=== PATIENT | male | born 1965 | race Caucasian/White ===

== ENCOUNTER 2019-07-05 06:10 | Day surgery (SDC) | payer OTHER, SELFPAY ==
[2019-07-04 12:55] VITALS: BMI 30.4
[2019-07-05 06:27] VITALS: BP 140/88; PULSE 107; RESP 18; TEMP 36.4; O2SAT 97
[2019-07-05] MEDS: sodium chloride 0.9% 1,000 ML 30 ML (06:43)
--- NOTE | 2019-07-05 07:26 | W.PM.OPSUD ---
Surgery/Procedure H&P Update DATE OF PROCEDURE: July 05, 2019 DATE H&P PERFORMED: 07/01/19 H&P UPDATE INFORMATION: I have reviewed H&P completed within last 30 days, I have examined patient prior to procedure, No changes to prior documentation and H&P to be scanned into chart PREOP DIAGNOSIS: Screening colonoscopy PRIMARY INDICATION FOR PROCEDURE: Screening colonoscopy PLANNED PROCEDURE: Operation Date: 07/05/19 07:30 Proposed Procedures p Colonoscopy(Not Applicable) - Masoud Lewis MD Related Problem List Diagnoses (1) Screening for colon cancer:
--- NOTE | 2019-07-05 07:29 | ANES.PREANE2 ---
Pre-Anesthetic Assessment Pre-Anesthetic Assessment: Height/Weight: Height 1.77 m Weight 94.801 kg Temp Pulse Resp BP Pulse Ox 97.5 F L 107 H 18 140/88 97 07/05/19 06:27 07/05/19 06:27 07/05/19 06:27 07/05/19 06:27 07/05/19 06:27 Proposed Procedure: Operation Date: 07/05/19 07:30 Proposed Procedures p Colonoscopy(Not Applicable) - Masoud Lewis MD Was Beta Shailesh taken within 24 hours: N/A Last intake: Intake Last Liquid Date 07/04/19 Last Liquid Time 21:00 Last Solid Date 07/03/19 Social: Social History: No alcohol and No tobacco Exam: Pre-Anes Outpt Exam: alert, oriented x 3, clear to auscultation bilaterally and regular rate & rhythm Airway: Submandibular: WNL Cervical ROM: WNL MP: 2 Dentition: Full History/ROS: No significant history except as noted and No significant complaints Pulmonary: Pulmonary: None reported CV/HEM: CV/HEM: HTN : : None reported Hepatic: Hepatic: None reported GI: GI: None reported Metabolic: Metabolic: None reported Musc/skel: Musc/skel: None reported Neuropsych: Neuropsych: None reported Anesthetic Plan: ASA status: 2 Anesthesia: Anesthesia Evaluation and MAC Risk of > 500 ml blood loss (7ml/kg in children): No PFSH Anesthesia PFSH: Family History (Updated 07/04/19 @ 12:48 by Sarmad Linn LPN) Brother No problems noted. Family/Other Family hx of colon cancer Data Anesthesia Cardiac Studies: No Data to Display
[2019-07-05 07:46] VITALS: BP 83/64; PULSE 89; RESP 16; TEMP 36.7; O2SAT 98
[2019-07-05 08:02] VITALS: BP 101/73; PULSE 97; RESP 18; O2SAT 95
== END 2019-07-05 08:16 | disposition home or self-care (01) ==
PROVIDERS: PCP Family Medicine; Visit Provider Family Medicine
PROC: 0DJD8ZZ Inspection of Lower Intestinal Tract, Via Natural or Artificial Opening Endoscopic (ICD-10-PCS; CPT 45378; principal; 2019-07-05 07:30)
DX: Z12.11 Encounter for screening for malignant neoplasm of colon (principal); Z83.3 Family history of diabetes mellitus; I10 Essential (primary) hypertension
CPT/HCPCS: 12345; 45378; J2704; J7030

== ENCOUNTER 2019-10-24 11:03 | Emergency (ER) | payer SELFPAY ==
[2019-10-24 11:05] VITALS: BP 156/102; PULSE 117; RESP 18; TEMP 37; O2SAT 97; BMI 28.7
--- NOTE | 2019-10-24 11:10 | XRR_ITS ---
PROCEDURE INFORMATION: Exam: XR Chest, 1 View Exam date and time: 10/24/2019 11:11 AM Age: 53 years old Clinical indication: Pain; Cough and shortness of breath; Other: Chest tightness; Additional info: froilan JACOBS TECHNIQUE: Imaging protocol: XR of the chest Views: 1 view. COMPARISON: No relevant prior studies available. FINDINGS: Lungs: Unremarkable. No consolidation. Pleural space: Unremarkable. No pleural effusion. No pneumothorax. Heart/Mediastinum: Unremarkable. No cardiomegaly. Bones/joints: Unremarkable. XR/XR chest 1V portable [id number] IMPRESSION: No acute findings.
--- NOTE | 2019-10-24 11:10 | W.ED.SOB ---
HPI - SOB/Dyspnea General: Chief Complaint: Shortness of Breath/Dyspnea Stated Complaint: CHEST TIGHTNESS, SOB Time Seen by Provider: 10/24/19 11:10 Source: patient Mode of arrival: ambulatory Limitations: no limitations History of Present Illness: HPI Narrative: Patient comes in today with a persistent cough that has worsened over the last 2 to 3 days. Patient reports being placed on lisinopril and is always had a little bit of a cough but seems worse the last 2 days. Patient also reports some mild shortness of breath with exertion over the last 2 days. Patient appears anxious. Patient reports that he is concerned that he may have developed COVID although he has no known exposure, and reports no fever. MD elicited complaint: shortness of breath (mild) and cough Review of Systems General: Reports: 10 or more systems reviewed and unremarkable except in HPI and below Resp: Reports: dyspnea and non-productive cough [facility] ED PFSH: Family History (Updated 07/04/19 @ 12:48 by Sarmad Linn LPN) Brother No problems noted. Family/Other Family hx of colon cancer Social History Smoking and tobacco status: never smoked Physical Exam Const: COMMON NORMALS: no acute distress and patient oriented x3 GENERAL APPEARANCE: cooperative HENMT: COMMON NORMALS: normocephalic and Normal external nose present HEAD & SCALP: normal to inspection and normocephalic NOSE: Normal external nose present MOUTH: Normal oral and palatal mucosa present THROAT: posterior oropharynx normal Eye: GENERAL EYE: appearance normal, both eyes and all related structures Neck/C-Spine: COMMON NORMALS: full ROM Lymph: LYMPHATIC: no lymphadenopathy noted Chest: COMMONS NORMALS: normal inspection of the chest Resp: COMMON NORMALS: normal respiratory effort EFFORT & INSPECTION: Yes able to speak in complete sentences Cardio: COMMON NORMALS: regular rate and regular rhythm RATE: regular rate RHYTHM: regular rhythm GI: COMMON NORMALS: non-tender Back/Pelvis: COMMON NORMALS: thoracic and lumbar spine normal to inspection Extremity: COMMON NORMALS: normal to inspection Neuro: COMMON NORMALS: patient oriented x3 and moves all extremities Psych: COMMON NORMALS: mental status grossly normal and cooperative Skin: COMMON NORMALS: no rashes or lesions noted GENERAL SKIN EXAM: no rashes or lesions noted Course Vital Signs: Vital signs: Vital Signs Temperature 98.6 F 10/24/19 11:05 Pulse Rate 117 H 10/24/19 11:05 Respiratory Rate 18 10/24/19 11:05 Blood Pressure 156/102 10/24/19 11:05 Pulse Oximetry 97 10/24/19 11:05 MDM - SOB/Dyspnea MDM Narrative: Medical decision making narrative: Patient comes in today with worsening cough and some increased shortness of breath over the last 2 to 4 days. Patient appears well. Patient appears in no acute distress. Lungs are clear to auscultation. Heart rate is tachycardic with an occasional ectopic beat. Abdomen soft nontender. No edema is noted in the extremities. Differential diagnosis includes but not limited to CHF, pneumonia, drug-related cough, PE, ACS, lower respiratory infection, anxiety. Chest x-ray was normal. Troponin was negative. CBC and CMP were unremarkable. BNP was normal. D-dimer was negative. Patient was concerned for COVID we went ahead and performed COVID testing and sent to [facility] labs. Patient will practice social distancing and self quarantine for next 3 days until test results are in. Patient agreed to plan of care and need for follow-up. Lab Data: Labs: Lab Results 10/24/19 10/24/19 10/24/19 Range/Units 11:40 11:40 11:40 WBC 4.3 (4.0-10.0) 10^3/ uL RBC 5.50 H (4.1-5.3) 10^6/u L Hgb 14.6 (11.7-16.6) g/dL Hct 46.6 (42.0-52.0) % MCV 84.7 (80-94) fL MCH 26.5 L (28.0-34.0) pg MCHC 31.3 (30.0-36.0) g/dL RDW 13.8 (12.1-15.1) % Plt Count 248 (130-400) 10^3/c mm MPV 9.4 (7.4-10.4) fL Neut % (Auto) 72.8 % Lymph % (Auto) 21.2 % [place] % (Auto) 3.7 % Eos % (Auto) 1.4 % Baso % (Auto) 0.7 % Neut # (Auto) 3.2 (1.8-7.7) 10^3/u L Lymph # (Auto) 0.9 (0.8-4.8) 10^3/u L [place] # (Auto) 0.2 (0.2-0.9) 10^3/u L Eos # (Auto) 0.1 (0.0-0.8) 10^3/u L Baso # (Auto) 0.0 (0.0-0.1) 10^3/u L Nucleated RBC % (a uto) 0 % Nucleated RBCs # 0.0 /100WBC D-Dimer (0-0.59) ug/mIFE U Sodium 140 (136-145) mmol/L Potassium 4.2 (3.5-5.1) mmol/L Chloride 102 (98-107) mmol/L Carbon Dioxide 27 (22-29) mmol/L Anion Gap 15.2 (5-19) BUN 20 (6-20) mg/dL Creatinine 0.7 (0.7-1.2) mg/dL GFR Calculation 117.1 (90-130) mL/min Glucose 124 H (65-115) mg/dL Calculated Osmolal ity 288 (285-295) mOsm/k g Calcium 9.3 (8.5-10.5) mg/dL Total Bilirubin 0.5 (0.15-1.2) mg/dL AST 19 (0-40) U/L ALT 32 (0-41) U/L Alkaline Phosphata se 108 (40-130) IU/L Troponin T Baselin e 10 (0-15) ng/L C-Reactive Protein 4.4 (0.0-4.9) mg/L NT-Pro-B Natriuret Pep 12 (0-125) pg/mL Total Protein 7.0 (6.6-8.7) g/dL Albumin 4.3 (3.5-5.2) g/dL Globulin 2.7 (1.3-4.6) g/dL //20 Range/Units 11:40 WBC (4.0-10.0) 10^3/ uL RBC (4.1-5.3) 10^6/u L Hgb (11.7-16.6) g/dL Hct (42.0-52.0) % MCV (80-94) fL MCH (28.0-34.0) pg MCHC (30.0-36.0) g/dL RDW (12.1-15.1) % Plt Count (130-400) 10^3/c mm MPV (7.4-10.4) fL Neut % (Auto) % Lymph % (Auto) % [place] % (Auto) % Eos % (Auto) % Baso % (Auto) % Neut # (Auto) (1.8-7.7) 10^3/u L Lymph # (Auto) (0.8-4.8) 10^3/u L [place] # (Auto) (0.2-0.9) 10^3/u L Eos # (Auto) (0.0-0.8) 10^3/u L Baso # (Auto) (0.0-0.1) 10^3/u L Nucleated RBC % (a uto) % Nucleated RBCs # /100WBC D-Dimer 0.20 (0-0.59) ug/mIFE U Sodium (136-145) mmol/L Potassium (3.5-5.1) mmol/L Chloride (98-107) mmol/L Carbon Dioxide (22-29) mmol/L Anion Gap (5-19) BUN (6-20) mg/dL Creatinine (0.7-1.2) mg/dL GFR Calculation (90-130) mL/min Glucose (65-115) mg/dL Calculated Osmolal ity (285-295) mOsm/k g Calcium (8.5-10.5) mg/dL Total Bilirubin (0.15-1.2) mg/dL AST (0-40) U/L ALT (0-41) U/L Alkaline Phosphata se (40-130) IU/L Troponin T Baselin e (0-15) ng/L C-Reactive Protein (0.0-4.9) mg/L NT-Pro-B Natriuret Pep (0-125) pg/mL Total Protein (6.6-8.7) g/dL Albumin (3.5-5.2) g/dL Globulin (1.3-4.6) g/dL EKG Data^: EKG 1: Attestation: I personally reviewed and interpreted this EKG as follows: (1118, mild sinus tachycardia at 112 bpm regular with polymorphic PVCs. No ST elevation.) Discharge Plan Discharge Patient Disposition: Home, Self-Care Clinical Impression: Cough Dyspnea Qualifiers: Dyspnea type: unspecified Qualified Code(s): R06.00 - Dyspnea, unspecified Condition: Stable Prescriptions: No Action lisinopril 10 mg Tablet 10 mg PO DAILY RF: 0 Discharge Orders: Discharge Order (Routine); Ordered 10/24/19 Ordered By: Darian Lockhart Referrals: Balaji Schmitt MD [Primary Care Provider] - Discharge Diet: Usual diet Discharge Activity: Increase activity as tolerated Activity Restrictions/Additional Instructions: Home and rest. Self quarantine for the next 3 days or until test results. Use mask about in public, practice social distancing. Return to the ER for worsening symptoms or high fever. Continue medications as directed. Follow-up with primary care in 1 week. Coding Level of Care Code ED Inspector Bicycle for Guerita Fwd Exam Comprehensive
--- NOTE | 2019-10-24 11:11 | ECG_ITS ---
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 Measurements Intervals [place] Rate: 112 P: 46 MT: 136 QRS: 0 QRSD: 85 T: 61 QT: 332 QTc: 455 Interpretive Statements SINUS TACHYCARDIA WITH FREQUENT VENTRICULAR PREMATURE COMPLEXES MINIMAL VOLTAGE CRITERIA FOR LVH, CONSIDER NORMAL VARIANT [MEETS CRITERIA IN ONE OF: R(aVL), S(V1), R(V5), R(V5/V6)+S(V1)] NONSPECIFIC ST & T-WAVE ABNORMALITY ABNORMAL RHYTHM ECG No previous ECG available for comparison Electronically Signed On 10-24-2019 21:13:48 CDT by Andreia Francis M.D. [id number]
[2019-10-24 12:01] LABS: Basophils % 0.7 %; Eosinophils # 0.1 10^3/uL (0.0-0.8); Eosinophils % 1.4 %; Hematocrit 46.6 % (42.0-52.0); Hemoglobin 14.6 g/dL (11.7-16.6); Lymphocytes # 0.9 10^3/uL (0.8-4.8); Lymphocytes % 21.2 %; Mean Corpuscular HGB Conc 31.3 g/dL (30.0-36.0); Mean Corpuscular Hemoglobin 26.5 pg (28.0-34.0); Mean Corpuscular Volume 84.7 fL (80-94); Mean Platelet Volume 9.4 fL (7.4-10.4); Monocytes # 0.2 10^3/uL (0.2-0.9); Monocytes % 3.7 %; Neutrophils # 3.2 10^3/uL (1.8-7.7); Neutrophils % 72.8 %; Nucleated Red Blood Cells % 0 %; Platelet Count 248 10^3/cmm (130-400); Red Cell Distribution Width 13.8 % (12.1-15.1); White Blood Count 4.3 10^3/uL (4.0-10.0)
[2019-10-24 12:24] LABS: Troponin(5th) Baseline 10 ng/L (0-15)
[2019-10-24 12:34] LABS: Alanine Aminotransferase 32 U/L (0-41); Albumin Level 4.3 g/dL (3.5-5.2); Alkaline Phosphatase 108 IU/L (40-130); Anion Gap 15.2 (5-19); Aspartate Amino Transferase 19 U/L (0-40); Blood Urea Nitrogen 20 mg/dL (6-20); C Reactive Protein 4.4 mg/L (0.0-4.9); Calcium 9.3 mg/dL (8.5-10.5); Carbon Dioxide 27 mmol/L (22-29); Chloride 102 mmol/L (98-107); Globulin 2.7 g/dL (1.3-4.6); Glomerular Filtration Rate 117.1 mL/min (90-130); Glucose 124 mg/dL (65-115); NT Pro B Type Natriuretic Pept 12 pg/mL (0-125); Osmolality Calculated 288 mOsm/kg (285-295); Potassium 4.2 mmol/L (3.5-5.1); Sodium 140 mmol/L (136-145); Total Bilirubin 0.5 mg/dL (0.15-1.2)
[2019-10-24 12:55] VITALS: BP 129/78; PULSE 87; RESP 20; O2SAT 96
[2019-10-30 08:20] LABS: Quest SARS-CoV-2 RNA NOT DETECTED (NOT DETECTED)
== END 2019-10-24 13:01 | disposition home or self-care (01) ==
PROVIDERS: Emergency Provider Nurse Practitioner Family; PCP Family Medicine
DX: R05 Cough (principal); R06.00 Dyspnea, unspecified
CPT/HCPCS: 12345; 71045; 80053; 83880; 84484; 85025; 85378; 86140; 93005; 99282; 99283

== ENCOUNTER 2021-01-31 05:05 | Emergency (ER) | payer SELFPAY ==
[2021-01-31 05:16] VITALS: BP 153/113; PULSE 92; RESP 18; TEMP 36.7; O2SAT 97; BMI 29.4
--- NOTE | 2021-01-31 05:37 | USR_ITS ---
PROCEDURE INFORMATION: Exam: US Duplex Right Lower Extremity Veins, Limited Exam date and time: 01/31/2021 5:37 AM Age: 55 years old Clinical indication: Other: Paresthesia; Additional info: R le paresthesia TECHNIQUE: Imaging protocol: Real-time Duplex ultrasound of the Right Lower Extremity with 2-D wayne scale, color Doppler flow and spectral waveform analysis with image documentation. Limited exam was focused on the right lower extremity veins. COMPARISON: No relevant prior studies available. FINDINGS: Evaluated veins include the right common femoral, proximal profunda femoral, proximal/mid/distal superficial femoral, popliteal, posterior tibial, peroneal, and proximal greater saphenous veins. No visible clot in the included veins. The included veins appear normally compressible. Duplex Doppler evaluation demonstrates flow in the evaluated veins. US/[place] [id number] IMPRESSION: No evidence of acute right lower extremity DVT.
--- NOTE | 2021-01-31 07:00 | ED_ITS ---
HPI - Extremity Problem General: Chief complaint: Extremity Injury, Lower Stated complaint: R leg Pain Time Seen by Provider: 01/31/21 05:17 History of Present Illness: HPI Narrative: 55-year-old male presents with an odd sensation of a fluid rushing sensation in his right lateral distal thigh, past his knee and into his leg. He has numbness to his toes. He denies any swelling. He denies significant pain. He does note some back pain that has been chronic. No redness or fever. He asked his daughter, who is a nurse, and she was worried that it could be a blood clot . MD Complaint: extremity pain Onset (ago): hour(s) Pain Consistency: constant Location: right and lower extremity Quality: other Radiation: distal Relieving factors: nothing Exacerbating factors: nothing Associated symptoms: Reports no associated symptoms; Deny arthralgias, chest pain, fever(s), rash or short of breath Review of Systems Const: Denies: fever(s) Card: Denies: chest pain Skin/Breast: Denies: rash PFS ED PFSH: Family History (Updated 07/04/19 @ 12:48 by Sarmad Linn LPN) Brother No problems noted. Family/Other Family hx of colon cancer Social History Smoking and tobacco status: never smoked Physical Exam Const: COMMON NORMALS: no acute distress, patient oriented x3 and alert HENMT: COMMON NORMALS: normocephalic HEAD & SCALP: normocephalic Eye: COMMON NORMALS: Equal, round and reactive pupils present and EOMs intact bilaterally PUPIL: Yes Equal, round and reactive pupils present Chest: COMMONS NORMALS: normal inspection of the chest Resp: COMMON NORMALS: normal respiratory effort, No use of accessory muscles and clear to auscultation bilaterally AUSCULTATION: clear to auscultation bilaterally Cardio: COMMON NORMALS: regular rate and regular rhythm RATE: regular rate RHYTHM: regular rhythm Extremity: OTHER: Examination of the right lower extremity reveals no reproducible tenderness or pain. No pain with calf stretch. No pain with deep flexion of the knee. Symptoms do not worsen with manipulation. Neuro: COMMON NORMALS: patient oriented x3 SENSORIUM/ORIENTATION: Yes alert Course Vital Signs: Vital signs: Vital Signs Temperature 98.1 F 01/31/21 05:16 Pulse Rate 92 01/31/21 05:16 Respiratory Rate 18 01/31/21 05:16 Blood Pressure 153/113 01/31/21 05:16 Pulse Oximetry 97 01/31/21 05:16 MDM - Extremity (Nontraumatic) MDM Narrative: Medical decision making narrative: USound for venous duplex of the right lower extremity is negative. The sensation he gives sounds like enteritis. He will be placed on a small burst of steroid and asked to follow-up with his primary care physician Discharge Plan Discharge Patient Disposition: Home Clinical Impression: Paresthesia of right leg Condition: Stable Prescriptions: New Medrol (Yakov) 4 mg tablets,dose pack See Rx Instructions .ROUTE .COMPLEX Qty: 21 RF: 0 No Action lisinopril 10 mg Tablet 10 mg PO DAILY RF: 0 Discharge Orders: Discharge ED (Routine); Ordered 01/31/21 Ordered By: Manny Rosales Patient Instructions: Paresthesia (ED) Activity Restrictions/Additional Instructions: Return for fever greater than 100, worsening paresthesias, development of pain, swelling, redness, any other concerning symptoms. Medication as directed. Coding Level of Care Code ED Emergency Service Restorer for Guerita Fwd Exam Detailed
[2021-01-31] MEDS: predniSONE 20 mg Tablet 40 MG PO (07:17)
[2021-01-31 07:20] VITALS: BP 127/84; PULSE 91; RESP 18; O2SAT 97
== END 2021-01-31 07:20 | disposition home or self-care (01) ==
PROVIDERS: Emergency Provider Emergency Medicine
DX: R20.2 Paresthesia of skin (principal)
CPT/HCPCS: 93971; 99282; J7512

== ENCOUNTER 2021-10-20 12:25 | Observation (INO) | payer MEDICAID, SELFPAY ==
--- NOTE | 2021-10-20 12:36 | ECG_ITS ---
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 Measurements Intervals [place] Rate: 86 P: 66 [place]: 153 QRS: 20 QRSD: 89 T: 53 QT: 367 QTc: 439 Interpretive Statements SINUS RHYTHM POSSIBLE LEFT ATRIAL ENLARGEMENT [-0.1mV P-WAVE IN V1/V2] POSSIBLE RIGHT VENTRICULAR CONDUCTION DELAY [RSR (QR) IN V1/V2] Compared to ECG 10/24/2019 11:18:57 Sinus tachycardia no longer present Ventricular premature complex(es) no longer present T-wave abnormality no longer present Electronically Signed On 10-20-2021 22:26:50 CDT by Lea Marrero M.D. [id number]
--- NOTE | 2021-10-20 12:36 | XR_ITS ---
WS: [email or web address] Exam: XR chest 1V portable [id number] Date/Time of Exam: 10/20/2021 12:51 PM Reason For Exam: dyspnea Comparison 10/24/2019. The lungs are clear. Normal cardiomediastinal silhouette. No pleural effusions. Bony elements are int act. Bilateral apical pleural thickening. XR/XR chest 1V portable [id number] IMPRESSION: 1. No acute cardiopulmonary finding. No change.
[2021-10-20 12:45] VITALS: BP 114/79; PULSE 87; RESP 12; TEMP 36.8; O2SAT 98; BMI 26.1
[2021-10-20 13:35] LABS: Basophils % 0.9 %; Eosinophils % 1.3 %; Hematocrit 37.5 % (42.0-52.0); Hemoglobin 12.6 g/dL (11.7-16.6); Lymphocytes # 0.9 10^3/uL (0.8-4.8); Lymphocytes % 39.9 %; Mean Corpuscular HGB Conc 33.6 g/dL (30.0-36.0); Mean Corpuscular Hemoglobin 27.6 pg (28.0-34.0); Mean Corpuscular Volume 82.2 fl (80-94); Mean Platelet Volume 9.9 fL (7.4-10.4); Monocytes % 1.8 %; Neutrophils # 1.24 10^3/uL (1.8-7.7); Neutrophils % 55.7 %; Nucleated Red Blood Cells % 0 %; Platelet Count 152 10^3/cmm (130-400); Red Blood Count 4.56 10^6/uL (4.1-5.3); Red Cell Distribution Width 15.2 % (12.1-15.1); White Blood Count 2.2 10^3/uL (4.0-10.0)
[2021-10-20 13:53] LABS: Blood Urea Nitrogen 17 mg/dL (6-20); Carbon Dioxide 24 mmol/L (22-29); Chloride 105 mmol/L (98-107); Glomerular Filtration Rate 99.6 mL/min (90-130); Glucose 87 mg/dL (65-115); Osmolality Calculated 287 mOsm/kg (285-295); Sodium 138 mmol/L (136-145)
--- NOTE | 2021-10-20 14:01 | ED_ITS ---
HPI - General Adult General: Chief complaint: Shortness of Breath/Dyspnea Stated complaint: SOB Time Seen by Provider: 10/20/21 13:48 History of Present Illness: Patient is a 55-year-old male with a history of hypertension who presents the emergency room with complaints of chest pressure and exertional dyspnea x 1 day. Patient tells me that for the last few days he has been feeling unwell and feeling increasingly more fatigued. Patient went to see Dr. Sands and had a tick panel that was sent recently. Patient denies any recent tick bites. Earlier today patient was at rest when she suddenly developed chest pressure lasting for 30 minutes at a time. In addition when patient performs any strenuous activity or chores, patient reports feeling very lightheaded and short of breath. Patient denies any cough, runny nose sore throat, fever/chills. Patient denies any abdominal complaints with nausea/vomiting, diarrhea melena/hematochezia. Patient has no acute complaints at this time. No family history of cardiac diseases. Patient denies any prior cardiac stents or surgeries. Patient denies any history of smoking or drug use. Onset: 1 day Duration:ongoing Location:home Severity:moderate Associated symptoms: Reports chest pain and dyspnea (+exertional dyspnea); Deny nausea, rash, palpitations or vomiting Review of Systems Const: Denies: fever(s) or chills Eyes: Denies: change in vision ENMT: Denies: mouth pain Card: Reports: chest pain; Denies: palpitations Resp: Reports: dyspnea (+exertional dyspnea); Denies: non-productive cough GI: Denies: abdominal pain, nausea, vomiting or diarrhea : Denies: dysuria Musc: Denies: extremity pain Skin/Breast: Denies: rash or new lesions Neuro: Denies: weakness in extremities Psych: Reports: other (Normal mood) Kaushik/Lymph: Denies: easy bruising PFSH ED PFSH: Medical History Hypertension Family History Brother No problems noted. Family/Other Family hx of colon cancer Social History Smoking and tobacco status: never smoked Physical Exam Const: COMMON NORMALS: alert HENMT: COMMON NORMALS: atraumatic HEAD & SCALP: atraumatic MOUTH: moist mucous membranes not abnormal Eye: COMMON NORMALS: EOMs intact bilaterally and conjunctivae normal CONJUNCTIVA: Yes conjunctivae normal Neck/C-Spine: COMMON NORMALS: full ROM and supple Resp: COMMON NORMALS: normal respiratory effort and clear to auscultation bilaterally AUSCULTATION: clear to auscultation bilaterally Cardio: COMMON NORMALS: regular rate RATE: regular rate OTHER: 2+ radial pulses b/l GI: COMMON NORMALS: Soft to palpation and non-tender PALPATION: Yes Soft to palpation OTHER: No focal TTP. NO guarding rebound, guarding, rigidity. No CVA tenderness to percussion. Neg Johnston/Neg McBurney's point tenderness, no suprabupic tenderness to palpation. Extremity: COMMON NORMALS: full ROM Neuro: SENSORIUM/ORIENTATION: Yes alert MOTOR EXAM: No Abnormal motor strength present and Other motor observations present (no focal motor deficits) Psych: COMMON NORMALS: speech normal SPEECH: Yes normal speech MOOD & AFFECT: Yes euthymic mood Course Vital Signs: Vital signs: Vital Signs Temperature 98.3 F 10/20/21 12:45 Pulse Rate 68 10/20/21 14:16 Respiratory Rate 16 10/20/21 14:16 Blood Pressure 117/73 10/20/21 14:16 Pulse Oximetry 100 10/20/21 14:16 [facility] - General Adult Medical Decision Making 55-year-old male with a history of hypertension presenting to the emergency room with exertional dyspnea and chest pressure at rest. On exam, patient has 2+ radial pulses, no focal findings. EKG is nonischemic, troponin x 1 wnl. Patient has a HEART score of 4. However shared decision making with patient for close outpatient follow-up with cardiology versus inpatient stay with stress test. Patient at this time elects to do the stress test. Patient received aspirin 325 mg. No complaints of chest pain the emergency room. Disposition: admission Lab Data : 10/20/21 13:23 10/20/21 13:23 Radiology Impressions Chest X-Ray 10/20/21 12:36 IMPRESSION: 1. No acute cardiopulmonary finding. No change. Laboratory Results WBC 2.2 10^3/uL (4.0-10.0) L 10/20/21 13:23 RBC 4.56 10^6/uL (4.1-5.3) 10/20/21 13:23 Hgb 12.6 g/dL (11.7-16.6) 10/20/21 13:23 Hct 37.5 % (42.0-52.0) L 10/20/21 13:23 MCV 82.2 fl (80-94) 10/20/21 13:23 MCH 27.6 pg (28.0-34.0) L 10/20/21 13:23 MCHC 33.6 g/dL (30.0-36.0) 10/20/21 13:23 RDW 15.2 % (12.1-15.1) H 10/20/21 13:23 Plt Count 152 10^3/cmm (130-400) 10/20/21 13:23 MPV 9.9 fL (7.4-10.4) 10/20/21 13:23 Neut % (Auto) 55.7 % 10/20/21 13:23 Lymph % (Auto) 39.9 % 10/20/21 13:23 [place] % (Auto) 1.8 % 10/20/21 13:23 Eos % (Auto) 1.3 % 10/20/21 13:23 Baso % (Auto) 0.9 % 10/20/21 13:23 Neut # (Auto) 1.24 10^3/uL (1.8-7.7) L 10/20/21 13:23 Lymph # (Auto) 0.9 10^3/uL (0.8-4.8) 10/20/21 13:23 [place] # (Auto) 0.0 10^3/uL (0.2-0.9) L 10/20/21 13:23 Eos # (Auto) 0.0 10^3/uL (0.0-0.8) 10/20/21 13:23 Baso # (Auto) 0.0 10^3/uL (0.0-0.1) 10/20/21 13:23 Nucleated RBC % (auto) 0 % 10/20/21 13:23 Nucleated RBCs # 0.0 /100WBC 10/20/21 13:23 D-Dimer 0.29 ug/mIFEU (0-0.59) 10/20/21 13:23 Sodium 138 mmol/L (136-145) 10/20/21 13:23 Potassium 4.0 mmol/L (3.5-5.1) 10/20/21 13:23 Chloride 105 mmol/L (98-107) 10/20/21 13:23 Carbon Dioxide 24 mmol/L (22-29) 10/20/21 13:23 Anion Gap 13.0 (5-19) 10/20/21 13:23 BUN 17 mg/dL (6-20) 10/20/21 13:23 Creatinine 0.8 mg/dL (0.7-1.2) 10/20/21 13:23 GFR Calculation 99.6 mL/min (90-130) 10/20/21 13:23 Glucose 87 mg/dL (65-115) 10/20/21 13:23 Calculated Osmolality 287 mOsm/kg (285-295) 10/20/21 13:23 Calcium 9.0 mg/dL (8.5-10.5) 10/20/21 13:23 Troponin T Baseline 10 ng/L (0-15) 10/20/21 13:23 Imaging Data Other Imaging: Radiologist's impression: [address] [place] [address] XRay Report Signed Patient: Galo Muller Unit #: [id number] : 1965 Age/Sex: 55 / M ADM Date: 10/20/21 Loc: ER Room/Bed: Attending Dr: Ordering Provider/Ordering MD: Homero Pruitt MD Date of Service: 10/20/21 Procedure(s): XR chest 1V portable [id number] Accession Number(s): [id number] Report Number: [id number] WS: [email or web address] Exam: XR chest 1V portable [id number] Date/Time of Exam: 10/20/2021 12:51 PM Reason For Exam: dyspnea Comparison 10/24/2019. The lungs are clear. Normal cardiomediastinal silhouette. No pleural effusions. Bony elements are intact. Bilateral apical pleural thickening. XR/XR chest 1V portable [id number] IMPRESSION: 1. No acute cardiopulmonary finding. No change. ? Dictated By: Rei Coe DO Signed By: Rei Coe DO Signed Date/Time: 10/20/21 130 DD/ 01 Discharge Plan Discharge Patient Disposition: Admitted As Inpatient Clinical Impression: Exertional dyspnea, Chest pain Condition: Stable Coding Level of Care Code ED Concrete Paving Supervisor for Chg Fwd Exam Comprehensive
[2021-10-20 14:03] LABS: Slide Review Slide Review Perform
[2021-10-20 14:16] VITALS: BP 117/73; PULSE 68; RESP 16; O2SAT 100
[2021-10-20 14:28] LABS: D Dimer 0.29 ug/mIFEU (0-0.59); Troponin(5th) Baseline 10 ng/L (0-15)
[2021-10-20] MEDS: aspirin 325 mg Tablet PO (15:42)
--- NOTE | 2021-10-20 15:48 | PC.NURSE ---
EKG done at 1545 and shown to ER doctor
--- NOTE | 2021-10-20 15:59 | ECG_ITS ---
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 Measurements Intervals [place] Rate: 66 P: 56 [place]: 172 QRS: 9 QRSD: 91 T: 33 QT: 390 QTc: 411 Interpretive Statements SINUS RHYTHM POSSIBLE RIGHT VENTRICULAR CONDUCTION DELAY [RSR (QR) IN V1/V2] Compared to ECG 10/20/2021 12:54:56 No significant changes Electronically Signed On 10-20-2021 22:28:51 CDT by Lea Marrero M.D. [id number]
[2021-10-20 16:27] LABS: Troponin 5 2HR 8.38 ng/L (0-15)
[2021-10-20 17:02] LABS: Troponin 5 2HR Delta -1.62 ABS# (0-10)
--- NOTE | 2021-10-20 17:55 | P.HP_ITS ---
Providers/Chief Complaint Admitting Physician: Andreia Antonio MD Chief Complaint: SOB History of Present Illness Galo Muller is a 55 year old male without significant past medical history presented today with chief complaint of chest discomfort and shortness of breath. Patient stating that for last 3 to 4 days he has been experiencing generalized weakness, fatigue, runny nose, runny eyes, headache. He attributed his symptoms initially to allergies. He went to see Dr. Prieto who asked him to go to the ER for further evaluation. Today he experienced an episode of chest discomfort which she describing as tightness which was nonradiating. However he has been noticing some numbness and neck pain. He has not noticed any diap horesis, nausea, vomiting, orthopnea, PND. He is stating that he noticed couple of loose stools in the last 3 days as well. Diagnosis in the ER revealed leukopenia afebrile, saturating well on room air Normotensive D-dimer and troponin unremarkable EKG without ischemic or infarctive changes Chest x-ray unremarkable Patient is agreeable for cardiac stress test Currently chest pain-free His PCP did bring up a tick bite however patient is denying any recent tick bites. Review of Systems Const: Reports: chills, body aches and fatigue; Denies: fever(s) Eyes: Denies: change in vision ENMT: Denies: throat pain Card: Reports: chest pain Resp: Reports: dyspnea GI: Denies: abdominal pain : Denies: flank pain Musc: Denies: neck pain Skin/Breast: Denies: rash Neuro: Reports: headache(s) Psych: Denies: anxiety Kaushik/Lymph: Denies: easy bruising All/Imm: Denies: urticaria Medications/Allergies Home Medications Medication Instructions Recorded Confirmed Last Taken Type acetaminophen 325 mg capsule 325 mg PO QID PRN 10/20/21 10/20/21 Unknown History (Tylenol) losartan 50 mg tablet 25 mg PO DAILY 10/20/21 10/20/21 10/20/21 History idzclbbwzhjx-dti-dduuu acid-vit 1 tab PO DAILY 10/20/21 10/20/21 Unknown History K-lycop 400 mcg-20 mcg-370 mcg tablet (Men's 50 Plus Multivitamin) Allergies Allergy/AdvReac Type Severity Reaction Status Date / Time No Known Allergies Allergy Verified 10/20/21 14:22 PFSH Acute PFSH: Medical History Hypertension Surgical History Hx of appendectomy Family History Brother No problems noted. Family/Other Family hx of colon cancer Social History Smoking and tobacco status: never smoked Vitals/I&O/Wt Last Vital Signs Temp 98.3 F 10/20/21 12:45 Pulse 68 10/20/21 14:16 Resp 16 10/20/21 14:16 BP 117/73 10/20/21 14:16 Pulse Ox 100 10/20/21 14:16 Weight last 48 hrs Weight 82.554 kg Physical Exam Narrative: Pleasant cooperative male Chest pain-free Hemodynamically stable Euvolemic Lean body mass No active chest pain No reproducible chest pain Saturating well on room air Hemodynamically stable Nonfocal neuro exam Pleasant and cooperative No sign of cellulitis Data : 10/20/21 13:23 10/20/21 13:23 A&P Assessment and plan (1) Chest pain: Status: Acute (2) Exertional dyspnea: Status: Acute Plan Unstable angina Cardiac stress test tomorrow Moderate risk factors No significant family history Check lipid panel hemoglobin A1c Negative delta troponin, D-dimer unremarkable Chest pain-free hemodynamically stable Serial troponin and EKG Cardiac stress test tomorrow morning Echo If he becomes febrile my threshold for COVID test will stay low noticed leukopenia Cardiac diet until midnight Full code Continue losartan for hypertension history Attestations Medical Necessity Statement*: Anticipating discharge within 48 hours will need cardiac distress for unstable anginal symptoms evaluation Time Spent in Patient Care: 35 Coding Level of Care Code Acute 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
[2021-10-20 19:27] VITALS: BP 117/73; PULSE 68; RESP 16; O2SAT 100
[2021-10-20 19:29] LABS: Procalcitonin 0.03 ng/mL (0-0.5)
--- NOTE | 2021-10-20 20:07 | ECG_ITS ---
[facility] Test Date: 2021-10-21 Pat Name: Galo Muller Department: Room: 279 Gender: Male Lpn Care Manager: Hilda Mishra : 1965 Requested By: Andreia Antonio Order Number: [id number] Reading MD: Ki Minaya M.D. Interpretive Statements NAME OF STUDY: LEXISCAN SESTAMIBI STRESS TEST INDICATION: Ua, PROCEDURE: At the baseline, the EKG revealed normal sinus rhythm with poor R wave progression. Normal ST Ts. The baseline blood pressure was 134/86 mm Hg with a heart rate of 80 beats/min. Lexiscan was infused over a period of 20 seconds. A total of 0.4 milligrams of Lexiscan was infused. The stress phase was continued for a total of 5 minutes. Heart rate at the end of the stress phase was 100 with a blood pressure 123/75. The EKG at the peak infusion revealed no significant changes. Sestamibi was injected 20 seconds after the Lexiscan infusion. Blood pressure at the end of the recovery phase was 126/76 with a heart rate of 92 per minute. CONCLUSION: 1. No significant EKG changes with the LexiScan infusion 2. No LexiScan induced chest pain or cardiac arrhythmia 3. Normal blood pressure and heart rate response 4. Sestamibi/sestamibi perfusion scan pending; see separate report. Electronically Signed On 10-22-2021 15:03:28 CDT by Ki Minaya M.D. [id number]
--- NOTE | 2021-10-20 20:07 | USCV_ITS ---
Galo Muller Age: 55 Gender: M : 1965 Exam Date: 10/20/2021 20:39 Ordering Phys: Andreia Antonio MD Technologist: DAVID [place] [facility] [place]: SOB CP malaise x 4 days. No history of cardiac intervention per patient. BP: 117 / 73 HR: 75 Rhythm: Sinus Technical Quality: Adequate MEASUREMENTS (Male / Female) Normal Values 2D ECHO LV Diastolic Diameter PLAX 4.3 cm 4.2 - 5.9 / 3.9 - 5.3 cm LV Systolic Diameter PLAX 2.7 cm IVS Diastolic Thickness 1.3 cm 0.6 - 1.0 / 0.6 - 0.9 cm IVS Systolic Thickness 2.0 cm LVPW Diastolic Thickness 1.3 cm 0.6 - 1.0 / 0.6 - 0.9 cm LVPW Systolic Thickness 1.4 cm LVOT Diameter 2.1 cm LV Ejection Fraction 2D Teich 65.3 % LV Ejection Fraction MOD 2C 81.6 % LV Ejection Fraction 2C AL 83.1 % LA Diameter 4.1 cm LA Width 3.2 cm LA Height 4.5 cm RA Width 3.3 cm RA Height 4.6 cm Aorta at Sinotubular Diameter 2.9 cm M-MODE Aortic Annulus Diameter 3.0 cm LA Ao Ratio MM 1.4 MV E Point Septal Separation 0.3 cm DOPPLER AV Peak Velocity 150.0 cm/s LVOT Peak Velocity 105.0 cm/s AV Area Cont Eq vti 2.7 cm squared AV Area Cont Eq pk 2.4 cm squared MV Peak Velocity 140.0 cm/s MV Area PHT 2.4 cm squared Mitral E to A Ratio 0.6 MV E' Velocity 43.5 cm/s Mitral E to MV E' Ratio 8.4 Mitral E to LV E' Lateral Ratio 7.5 Mitral E to LV E' Septal Ratio 9.4 TR Peak Velocity 206.5 cm/s TR Peak Gradient 17.1 mmHg TV Peak E Velocity 55.0 cm/s Right Atrial Pressure 5.0 mmHg Pulmonary Artery Systolic Pressu 22.1 mmHg PV Peak Velocity 181.0 cm/s RV Acceleration Time 0.1 s RV Ejection Time 0.3 s RV AcT/ET 0.2 FINDINGS Left Ventricle Normal left ventricular size. LV systolic function is normal with EF of 60-65%.No regional wall motion abnormalities. Grade 1 diastolic dysfunction Right Ventricle The right ventricle is normal in size and function. Right Atrium The right atrium is normal in size. Left Atrium The left atrium is normal in size. Mitral Valve Structurally normal mitral valve without significant stenosis or prolapse. There is no mitral regurgitation. Aortic Valve Structurally normal aortic valve without significant sclerosis or stenosis. There is no aortic regurgitation. Tricuspid Valve Structurally normal tricuspid valve without significant stenosis or regurgitation. Insufficient TR jet to calculate RVSP Pulmonic Valve Grossly normal Pericardium Normal pericardium without effusion. Aorta Normal ascending aorta dimension. IVC CONCLUSIONS LV systolic function is normal with EF of 60-65% Grade 1 diastolic dysfunction No significant valvular heart disease No comparison studies are available Dimas Her MD (Electronically Signed) Final Date: 21 October 2021 11:30 S
[2021-10-20 21:47] LABS: Thyroid Stimulating Hormone 1.17 uIU/mL (0.27-4.20)
[2021-10-20 22:00] VITALS: PULSE 74
[2021-10-20] MEDS: enoxaparin 40 mg/0.4 mL Syringe SUBCUT (22:49)
[2021-10-21 00:06] LABS: Adenovirus Not Detected (NOT DETECT); Chlamydia Pneumoniae Not Detected (NOT DETECT); Coronavirus 229E,HKU1,NL63,OC4 Not Detected (NOT DETECT); Human Metapneumovirus Not Detected (NOT DETECT); Human Rhinovirus/Enterovirus Not Detected (NOT DETECT); Influenza A Not Detected (NOT DETECT); Influenza A H1 Not Detected (NOT DETECT); Influenza A H1-2009 Not Detected (NOT DETECT); Influenza A H3 Not Detected (NOT DETECT); Influenza B Not Detected (NOT DETECT); Mycoplasma Pneumoniae Not Detected (NOT DETECT); Parainfluenza Virus Type 1 Not Detected (NOT DETECT); Parainfluenza Virus Type 2 Not Detected (NOT DETECT); Parainfluenza Virus Type 3 Not Detected (NOT DETECT); Parainfluenza Virus Type 4 Not Detected (NOT DETECT); Respiratory Syncytial Virus A Not Detected (NOT DETECT); Respiratory Syncytial Virus B Not Detected (NOT DETECT); SARS-COV-2 Not Detected (NOT DETECT)
[2021-10-21 04:17] LABS: Basophils % 0.9 %; Eosinophils % 1.3 %; Hematocrit 34.2 % (42.0-52.0); Hemoglobin 11.3 g/dL (11.7-16.6); Lymphocytes # 1.1 10^3/uL (0.8-4.8); Lymphocytes % 47.1 %; Mean Corpuscular Hemoglobin 27.4 pg (28.0-34.0); Mean Corpuscular Volume 82.8 fl (80-94); Mean Platelet Volume 10.4 fL (7.4-10.4); Monocytes # 0.1 10^3/uL (0.2-0.9); Monocytes % 3.5 %; Neutrophils # 1.07 10^3/uL (1.8-7.7); Neutrophils % 47.2 %; Nucleated Red Blood Cells % 0 %; Platelet Count 141 10^3/cmm (130-400); Red Blood Count 4.13 10^6/uL (4.1-5.3); White Blood Count 2.3 10^3/uL (4.0-10.0)
[2021-10-21 04:37] LABS: Magnesium 2.2 mg/dL (1.7-2.3)
--- NOTE | 2021-10-21 04:51 | PC.NURSE ---
Pt lying in bed resting with eyes closed. Pt resp even and non-labored no distress or sob noted. Pt had no c/o pain or discomfort at the present time. No needs voiced. Call light in reach.
[2021-10-21 04:52] LABS: Slide Review Slide Review Perform
[2021-10-21 05:35] VITALS: PULSE 59
--- NOTE | 2021-10-21 07:58 | PC.NURSE ---
to stress test
[2021-10-21 08:35] VITALS: BP 126/76; PULSE 92
[2021-10-21] MEDS: regadenoson 0.4 Mg/5 ml Syringe IVP (08:36)
--- NOTE | 2021-10-21 10:47 | PC.CHAP ---
Pastoral Care Encounter/Spiritual Assessment Type of Contact [x] Declined loading unit operator visit [] Patient/Family/Request visit [] Outpatient visit [] Follow-up visit [] Physician referral [] Code/Alert [] Routine visit [] Staff referral [] Actively dying [] Patient sleeping [] Family support [] [] Out of room [] Palliative care [] [] Receiving care in room [] Pre-surgical visit [] Trauma [] Long length of stay [] ICU visit [] Other: Relational/Emotional Strength [] Patient feels connected with others/family/visitors/staff [] Distress [] Loneliness/isolation [] Abandonment Spirituality of Patient [] Person of Annabella [] Attends Methodist of their [place] [] Believes in Prayer [] Reads Bible or Presybeterian materials [] There are Spiritual issues to be addressed Balloon Dipper Interventions [] Prayer [] Active listening [] Non-anxious presence [] Spiritual/emotional support [] Crisis/trauma care [] Spiritual counseling [] Bereavement support [] Provided bereavement packet [] Provided Bible/devotional materials [] Provided toy/stuffed animal, coloring book to patient or family member [] Provided Communion [] Anointing/[place] [] Salvation [] Completed spiritual assessment [] Other: Impact on Illness or Injury [] Angry [] Fearful [] Anxious [] Often cries [] Exhaustion [] Unable to work [] Unable to attend rastafari [] Unable to walk/stand [] Unable to read [] Unable to drive [] Unable to eat/drink [] Unable to sleep [] Unable to be with family [] Patient intubated [] Other: Summary Declined loading unit operator visit Time spent with patient 5 mins
--- NOTE | 2021-10-21 11:30 | P.DS_ITS ---
Discharge Providers Date of Admission: 10/20/21 16:05 Date of Discharge: October 21, 2021 Attending Provider at Admission: Andreia Antonio MD Attending Provider at Discharge: Andreia Antonio MD Diagnoses at Discharge Discharge Diagnosis (1) Chest pain: Status: Acute (2) Exertional dyspnea: Status: Acute Reason for Visit Reason for Visit: SOB Hospital Course Hospital Course 55-year-old male without any significant past medical history other than hypertension presented with chief complaint of exertional shortness of breath and episode of chest pain. Troponins unremarkable EKG without ischemic or infarctive changes. TSH normal. D-dimer unremarkable. COVID test negative. Stress test unremarkable. Other than leukopenia no other abnormality on CBC. He remained afebrile, saturating well on room air. No recurrence of chest pain during hospitalization. Cardiac stress test unremarkable He is also complaining of neck pain with some numbness of his arms bilaterally I do believe his symptoms are related to radiculopathy, he can follow-up with his PCP and might benefit from an orthopedic evaluation outpatient Physical Exam Narrative: Nonfocal neuro exam Saturating well on room air S1, S2 Euvolemic No audible stridor or wheezing No signs of stroke Nonreproducible chest pain Patient is endorsing feeling better, no orthopnea PND Pleasant and cooperative Discharge Data Studies Completed and Pending Completed Studies During Hospitalization Category Date Time Status Sestamibi Stress Test Request Routine Exams 10/20/21 20:07 Draft XR chest 1V portable [id number] Urgent Exams 10/20/21 12:36 Completed Pending at discharge Category Date Time Status NM valdo perf SPECT r/s* [id number] Routine Nuc Med 10/21/21 20:07 Taken CV. echo complete* [id number] Routine Ultrasound 10/20/21 20:07 Taken Radiology Impressions Chest X-Ray 10/20/21 12:36 IMPRESSION: 1. No acute cardiopulmonary finding. No change. Laboratory Results WBC 2.3 10^3/uL (4.0-10.0) L 10/21/21 03:59 RBC 4.13 10^6/uL (4.1-5.3) 10/21/21 03:59 Hgb 11.3 g/dL (11.7-16.6) L 10/21/21 03:59 Hct 34.2 % (42.0-52.0) L 10/21/21 03:59 MCV 82.8 fl (80-94) 10/21/21 03:59 MCH 27.4 pg (28.0-34.0) L 10/21/21 03:59 MCHC 33.0 g/dL (30.0-36.0) 10/21/21 03:59 RDW 15.0 % (12.1-15.1) 10/21/21 03:59 Plt Count 141 10^3/cmm (130-400) 10/21/21 03:59 MPV 10.4 fL (7.4-10.4) 10/21/21 03:59 Neut % (Auto) 47.2 % 10/21/21 03:59 Lymph % (Auto) 47.1 % 10/21/21 03:59 [place] % (Auto) 3.5 % 10/21/21 03:59 Eos % (Auto) 1.3 % 10/21/21 03:59 Baso % (Auto) 0.9 % 10/21/21 03:59 Neut # (Auto) 1.07 10^3/uL (1.8-7.7) L 10/21/21 03:59 Lymph # (Auto) 1.1 10^3/uL (0.8-4.8) 10/21/21 03:59 [place] # (Auto) 0.1 10^3/uL (0.2-0.9) L 10/21/21 03:59 Eos # (Auto) 0.0 10^3/uL (0.0-0.8) 10/21/21 03:59 Baso # (Auto) 0.0 10^3/uL (0.0-0.1) 10/21/21 03:59 Nucleated RBC % (auto) 0 % 10/21/21 03:59 Nucleated RBCs # 0.0 /100WBC 10/21/21 03:59 D-Dimer 0.29 ug/mIFEU (0-0.59) 10/20/21 13:23 Sodium 138 mmol/L (136-145) 10/20/21 13:23 Potassium 4.0 mmol/L (3.5-5.1) 10/20/21 13:23 Chloride 105 mmol/L (98-107) 10/20/21 13:23 Carbon Dioxide 24 mmol/L (22-29) 10/20/21 13:23 Anion Gap 13.0 (5-19) 10/20/21 13:23 BUN 17 mg/dL (6-20) 10/20/21 13:23 Creatinine 0.8 mg/dL (0.7-1.2) 10/20/21 13:23 GFR Calculation 99.6 mL/min (90-130) 10/20/21 13:23 Glucose 87 mg/dL (65-115) 10/20/21 13:23 Calculated Osmolality 287 mOsm/kg (285-295) 10/20/21 13:23 Calcium 9.0 mg/dL (8.5-10.5) 10/20/21 13:23 Magnesium 2.2 mg/dL (1.7-2.3) 10/21/21 03:59 Troponin T Baseline 10 ng/L (0-15) 10/20/21 13:23 Troponin T 120 Minute 8.38 ng/L (0-15) 10/20/21 15:50 Delta Troponin T -1.62 ABS# (0-10) L 10/20/21 15:50 Procalcitonin 0.03 ng/mL (0-0.5) 10/20/21 15:50 TSH 1.17 uIU/mL (0.27-4.20) 10/20/21 15:50 Coronavirus 229E (PCR) Not detected (NOT DETECT) 10/20/21 21:25 SARS-CoV-2 (PCR) Not detected (NOT DETECT) 10/20/21 21:25 Vitals Last Vital Signs Temp 98.3 F 10/20/21 12:45 Pulse 92 10/21/21 08:35 Resp 16 10/20/21 19:27 BP 126/76 10/21/21 08:35 Pulse Ox 100 10/20/21 19:27 Discharge Plan Discharge Patient Disposition: Home Condition: Stable Prescriptions: New nitroglycerin 0.4 mg Tablet, Sublingual 0.4 mg sublingual Q5M PRN (Reason: Chest Pain) Qty: 20 0RF Continued losartan 50 mg tablet 25 mg PO DAILY 0RF Tylenol 325 mg Capsule 325 mg PO QID PRN (Reason: Pain) 0RF Men's 50 Plus Multivitamin 400-20-370 mcg Tablet 1 tab PO DAILY 0RF Discharge Orders: Discharge Order (Routine); Ordered 10/21/21 Ordered By: Andreia Antonio Other Ambulatory Orders: Complete Blood Count w/Auto (Routine) Timeframe: 3 Days Location: Determined by Patient Ordered By: Andreia Antonio Referrals: Balaji Schmitt MD [Physician] - Patient Instructions: Opioid Safety Discharge Attestations Time Spent in Discharge Care*: less than 30 min Quality Metrics Clinical Quality Measures [ No reported AMI, CVA or VTE this stay] Coding Level of Care Code Acute g [facility] note Diagnoses Chest pain R07.9 Exertional dyspnea R06.00
[2021-10-21 11:41] VITALS: BP 121/81; PULSE 88; TEMP 36.6; O2SAT 98
[2021-10-21 16:49] VITALS: BP 121/81; PULSE 88; TEMP 36.6; O2SAT 98
--- NOTE | 2021-10-21 20:07 | NMCV_ITS ---
NM valdo perf SPECT r/s* [id number] Galo Muller Age: 55 Gender: M : 1965 Exam Date: 10/21/2021 07:15 Ordering Phys: Andreia Antonio MD Technologist: CARMITA Franklin Exam Location: [facility] Indications: CHEST PAIN STRESS TEST Please see separate stress test report in [facility] for full findings IMAGE PROTOCOL Rest/Stress 1 Lexiscan Day Radiopharmaceutical Dose (mCi) Administration Site Administered by Rest: Tc-99m 10.8 IV CARMITA Peng Sestamibi Stress:Tc-99m 32.4 IV CARMITA Peng Sestamibi Rest: 21-Oct-2021 60 Discovery 630 Stress: 21-Oct-2021 30 Discovery 630 0.4mg Lexiscan. Images obtained in supine and prone position. SPECT RESULTS Technical Quality: Excellent Raw Data Analysis: Normal Image Corrections: No attenuation or motion correction applied Summed Stress Score: 0 Summed Rest Score: 0 Summed Difference Score: 0 PERFUSION FINDINGS Uniform myocardial tracer uptake with no significant perfusion abnormalities FUNCTIONAL RESULTS (calculated via Gated SPECT) Stress Image LV EF (%): 64 Stress EDV (mL):89 TID: 0.91 Stress ESV (mL):32 FUNCTIONAL FINDINGS: Segmental wall motion analysis revealing no gross wall motion abnormalities IMPRESSIONS 1. Myocardial perfusion imaging revealing uniform myocardial tracer uptake 2. Segmental wall motion analysis revealing no gross wall motion abnormalities 3. Normal LV ejection fraction 64%. 4. Normal LV volume. Low probability for coronary ischemia, based on the above findings Dr Ki Minaya MD FAC (Electronically Signed) Final Date: 21 October 2021 16:06 S
== END 2021-10-21 16:50 | disposition home or self-care (01) ==
LOC: ER 14:58 → MEDSURG 17:36
PROVIDERS: Admitting Provider Internal Medicine; Emergency Provider Emergency Medicine; Visit Provider Internal Medicine
DX: R07.89 Other chest pain (principal); R06.00 Dyspnea, unspecified; D72.819 Decreased white blood cell count, unspecified; Z80.0 Family history of malignant neoplasm of digestive organs
CPT/HCPCS: 36415; 71045; 78452; 80048; 83735; 84145; 84443; 84484; 85025; 85378; 87635; 93005; 93017; 93306; 96372; 96374; 99285; A9500; G0378; J1650; J2785

== ENCOUNTER 2022-10-05 09:05 | Oncology outpatient (recurring) (ONCR) | payer MEDICAID, SELFPAY | END 2022-10-28 23:59 | disposition home or self-care (01) | PROVIDERS: PCP Family Medicine; Visit Provider Internal Medicine Medical Oncology | DX: D69.6 Thrombocytopenia, unspecified (principal); D70.9 Neutropenia, unspecified | CPT/HCPCS: 80053; 85025; 86664; 86665; 86705; 86706; 86709; 86803; 87340; 87806 ==

== ENCOUNTER 2022-10-28 15:50 | Outpatient (CLI) | payer MEDICAID, SELFPAY ==
--- NOTE | 2022-10-28 16:45 | US_ITS ---
WS: [id number] Complete ABDOMINAL ULTRASOUND HISTORY: evaluate for hepatosplenomegaly COMPARISON: None available. Liver: 15.3 cm in length. Normal size liver and echogenicity. No bile duct dilatation or mass. Portal Vein: Normal hepatopetal flow with monophasic waveform. Gallbladder: Normally distended gallbladder with no stones or wall thickening. CBD: 0.4 cm Pancreas: Completely obscured. Right kidney: 10.9 cm x 5.8 x 5.8 cm. Cortex:1.4 cm. Normal size and echogenicity. No hydronephrosis or mass. Left kidney: 11.6 cm x 5.1 cm x 4.6 cm. Cortex: 1.2 cm. Normal size and echogenicity. No hydronephrosis or mass. Spleen: 13.0 cm in length. Normal concavity at the hilum. Aorta and IVC: Unremarkable abdominal aorta and IVC. US/US abdomen complete* [id number] Impression: 1. Normal size spleen. 2. Normal gallbladder and liver. 3. Obscured pancreas.
== END 2022-10-28 15:51 | disposition home or self-care (01) ==
LOC: RAD 15:52
PROVIDERS: PCP Family Medicine; Visit Provider Internal Medicine Medical Oncology
DX: D69.6 Thrombocytopenia, unspecified (principal); D70.9 Neutropenia, unspecified
CPT/HCPCS: 76700

== ENCOUNTER 2022-11-02 14:49 | Oncology outpatient (recurring) (ONCR) | payer MEDICAID, SELFPAY | END 2022-11-28 23:59 | disposition home or self-care (01) | PROVIDERS: PCP Family Medicine; Visit Provider Internal Medicine Medical Oncology | DX: Z53.9 Procedure and treatment not carried out, unspecified reason (principal) ==

== ENCOUNTER 2022-12-20 12:00 | Oncology outpatient (recurring) (ONCR) | payer MEDICAID, SELFPAY ==
[2022-12-20 13:02] VITALS: BP 122/81; PULSE 89; RESP 18; TEMP 36.7; O2SAT 97
[2022-12-20 13:15] LABS: Basophils % 0.5 %; Hematocrit 37.9 % (37-53); Lymphocytes # 0.9 10^3/uL (0.8-4.8); Mean Corpuscular HGB Conc 32.2 g/dL (30-55); Mean Corpuscular Hemoglobin 27.1 pg (27-33); Mean Platelet Volume 9.2 fL (7.4-10.4); Monocytes % 1.9 %; Neutrophils # 1.11 10^3/uL (1.8-7.7); Neutrophils % 53.6 %; Nucleated Red Blood Cells % 0 %; Platelet Count 113 10^3/cmm (157-399); Red Blood Count 4.51 10^6/uL (3.85-5.65); Red Cell Distribution Width 14.9 % (12.1-15.1); White Blood Count 2.07 10^3/uL (3.29-11.43)
[2022-12-20 13:48] LABS: Slide Review Slide Review Perform
== END 2022-12-29 23:59 | disposition home or self-care (01) ==
PROVIDERS: PCP Family Medicine; Visit Provider Internal Medicine Medical Oncology
DX: D70.9 Neutropenia, unspecified (principal)
CPT/HCPCS: 36415; 85025

== ENCOUNTER 2023-01-23 11:30 | Oncology outpatient (recurring) (ONCR) | payer MEDICAID, SELFPAY ==
[2023-01-23 11:34] VITALS: BP 119/86; PULSE 101; RESP 16; TEMP 36.2; O2SAT 97
[2023-01-23 11:48] LABS: Hematocrit 38.7 % (37-53); Lymphocytes # 0.9 10^3/uL (0.8-4.8); Lymphocytes % 41.9 %; Mean Corpuscular HGB Conc 32.8 g/dL (30-55); Mean Corpuscular Hemoglobin 27.1 pg (27-33); Mean Corpuscular Volume 82.7 fl (82-101); Mean Platelet Volume 9.5 fL (7.4-10.4); Neutrophils % 54.1 %; Nucleated Red Blood Cells % 0 %; Platelet Count 133 10^3/cmm (157-399); Red Blood Count 4.68 10^6/uL (3.85-5.65); Red Cell Distribution Width 14.9 % (12.1-15.1); White Blood Count 2.03 10^3/uL (3.29-11.43)
[2023-01-23 12:14] LABS: Slide Review Slide Review Perform
== END 2023-01-28 23:59 | disposition home or self-care (01) ==
PROVIDERS: Internal Medicine Medical Oncology; PCP Family Medicine; Visit Provider Internal Medicine Medical Oncology
DX: D69.6 Thrombocytopenia, unspecified (principal); D70.9 Neutropenia, unspecified; R53.83 Other fatigue; Z79.899 Other long term (current) drug therapy
CPT/HCPCS: 36415; 85025

== ENCOUNTER 2023-05-02 12:03 | Oncology outpatient (recurring) (ONCR) | payer MEDICAID, SELFPAY ==
[2023-05-02 12:30] VITALS: BP 128/87; PULSE 97; RESP 16; TEMP 36.9; O2SAT 99
[2023-05-02 12:37] LABS: Basophils % 0.6 %; Eosinophils % 1.8 %; Hematocrit 36.7 % (37-53); Lymphocytes # 0.9 10^3/uL (0.8-4.8); Lymphocytes % 54.8 %; Mean Corpuscular HGB Conc 32.2 g/dL (30-55); Mean Corpuscular Hemoglobin 27.2 pg (27-33); Mean Corpuscular Volume 84.6 fl (82-101); Mean Platelet Volume 9.4 fL (7.4-10.4); Monocytes % 1.8 %; Nucleated Red Blood Cells % 0 %; Platelet Count 125 10^3/cmm (157-399); Red Blood Count 4.34 10^6/uL (3.85-5.65); Red Cell Distribution Width 15.1 % (12.1-15.1); White Blood Count 1.68 10^3/uL (3.29-11.43)
[2023-05-02 12:52] LABS: Neutrophils # 0.69 10^3/uL (1.8-7.7)
[2023-05-02 12:53] LABS: Slide Review Slide Review Perform
== END 2023-05-31 23:59 | disposition home or self-care (01) ==
LOC: ONCMED 12:05
PROVIDERS: PCP Family Medicine; Visit Provider Internal Medicine Medical Oncology
DX: D69.6 Thrombocytopenia, unspecified (principal); D70.9 Neutropenia, unspecified; Z79.899 Other long term (current) drug therapy
CPT/HCPCS: 36415; 85025

== ENCOUNTER 2023-06-06 10:58 | Outpatient (CLI) | payer MEDICAID, SELFPAY ==
--- NOTE | 2023-06-06 11:30 | PETR_ITS ---
PROCEDURE INFORMATION: Exam: PET/CT Skull Base to Mid-thigh Exam date and time: 06/06/2023 11:58 AM Age: 57 years old Clinical indication: Condition or disease; Primary cancer: Lymphoma non hodgkin; Follow-up oncological assessment; Additional info: Staging LABS AND CLINICAL REPORTS: Glucose: 87 mg/dl Treatment strategy for malignancy (PET staging): PS: Restaging. TECHNIQUE: Imaging protocol: Following at least four-hour fasting and following the injection of radiopharmaceutical, low dose CT images were obtained. Then, PET images were obtained. Attenuation corrected images were constructed using the CT scan. Fused images of PET and CT were reviewed. The standardized uptake values (SUV) reported below are maximum values within a region of interest, expressed in gm/ml. Exam includes orbital meatal line to mid-thigh. Radiopharmaceutical: 11.91 mCi F-18 FDG (Fluorodeoxyglucose), IV. Time of imaging post radiopharmaceutical administration: 1 hour COMPARISON: US abdomen complete* [id number] 10/28/2022 4:08 PM FINDINGS: Brain: Visualized brain has normal physiologic uptake. Pharynx: No abnormal uptake. Larynx: No abnormal uptake. Lungs, pleura and trachea: No abnormal uptake. Heart: Normal physiologic uptake. Mediastinal space: No abnormal uptake. Liver: No abnormal uptake. Gallbladder and bile ducts: No abnormal uptake. Pancreas: No abnormal uptake. Spleen: The spleen does not appear enlarged and has SUV max of 3.6. There is a rounded low-density lesion in the spleen measuring approximately 2.8 cm of uncertain significance without FDG uptake. Adrenal glands: No abnormal uptake. Kidneys and ureters: Normal physiologic uptake. Stomach and bowel: Some focal uptake in the region of the rectum is seen with SUV max 6.9. Vasculature: Ectatic aortic arch measuring up to 3.9 cm versus possible ductus diverticulum. Lymph nodes: No abnormal uptake. No lymphadenopathy in the head, neck, chest, abdomen, pelvis, and extremities. Bones/joints: Some mild diffuse uptake within the axial skeleton is seen with SUV max 3.6. Soft tissues: Small fat containing umbilical hernia. Small fat containing right inguinal hernia. PET/PET skulltothigh SUBSEQ [id number] IMPRESSION: 1. No definite FDG avid lymphomatous disease is identified. 2. Some mild diffuse uptake within the axial skeleton could relate to treatment effect. 3. Some focal uptake in the region of the rectum could be inflammatory, though this could be correlated with colonoscopy. 4. Ectatic aortic arch measuring up to 3.9 cm versus possible ductus diverticulum. 5. The spleen is not hypermetabolic or enlarged. There is a 2.8 cm round low-density lesion in the spleen without FDG avidity.
== END 2023-06-06 10:59 | disposition home or self-care (01) ==
LOC: RAD 10:58
PROVIDERS: PCP Family Medicine; Visit Provider Nurse Practitioner Family
DX: C85.90 Non-Hodgkin lymphoma, unspecified, unspecified site (principal); D69.6 Thrombocytopenia, unspecified; D70.9 Neutropenia, unspecified
CPT/HCPCS: 78815; A9552

== ENCOUNTER → 2024-03-13 12:18 | Day surgery (SDC) | payer MEDICAID, SELFPAY ==
--- NOTE | 2024-03-13 12:22 | XR_ITS ---
WS: [id number] Portable AP upright chest, 03/13/2024 Clinical Data: Post PICC insertion Comparison: Portable chest, 10/20/2021. Findings: The left PICC line has entered the superior vena cava and ends at the caval atrial junction . No pneumothorax is seen. XR/XR chest 1V portable [id number] Impression: Satisfactory placement of left PICC line.
--- NOTE | 2024-03-13 13:00 | PICC.NOTE ---
Double lumen PICC placed to left basilic vein. Referred to vascular access nurse for PICC placement due to need for chemotherapy. Risks and benefits discussed and informed consent obtained from patient. Left arm assessed per patient request with left basilic vein measuring 4.3 mm, straight, and apparent best choice for placement. Using sterile technique and MST, left basilic vein accessed x 1 stick. Mid-arm circumference measured 10 cm from left AC 29 cm. Trimmed cath 47 cm with 0 cm external length noted. CXR shows tip in caval atrial junction, in good position for use per radiologist. Line secured with stat-lock. Insertion site covered with Biopatch and TSM. Report given to cancer treatment nurse, Kat. Pt to return to [facility] tomorrow morning at 0800 for 24 hour PICC dressing change.
== END ==
PROVIDERS: PCP Family Medicine; Visit Provider Internal Medicine
DX: Z45.2 Encounter for adjustment and management of vascular access device (principal)
CPT/HCPCS: 36573; 71045

== ENCOUNTER 2024-03-25 07:30 | Oncology outpatient (recurring) (ONCR) | payer MEDICAID, SELFPAY ==
[2024-03-07 08:45] LABS: Basophils % 0.8 %; Eosinophils # 0.1 10^3/uL (0.0-0.8); Eosinophils % 2.6 %; Hematocrit 39.8 % (37-53); Lymphocytes # 0.1 10^3/uL (0.8-4.8); Lymphocytes % 4.9 %; Mean Corpuscular HGB Conc 31.4 g/dL (30-55); Mean Corpuscular Hemoglobin 26.9 pg (27-33); Mean Corpuscular Volume 85.8 fl (82-101); Mean Platelet Volume 8.9 fL (7.4-10.4); Monocytes # 0.2 10^3/uL (0.2-0.9); Monocytes % 7.2 %; Neutrophils # 2.22 10^3/uL (1.8-7.7); Neutrophils % 83.7 %; Nucleated Red Blood Cells % 0 %; Platelet Count 209 10^3/cmm (157-399); Red Blood Count 4.64 10^6/uL (3.85-5.65); Red Cell Distribution Width 14.7 % (12.1-15.1); White Blood Count 2.65 10^3/uL (3.29-11.43)
[2024-03-07 09:10] LABS: Alanine Aminotransferase 16 U/L (0-41); Albumin Level 4.1 g/dL (3.5-5.2); Alkaline Phosphatase 83 U/L (40-130); Anion Gap 14.3 (5-19); Aspartate Amino Transferase 16 U/L (0-40); Blood Urea Nitrogen 13 mg/dL (8-23); Calcium 8.3 mg/dL (8.5-10.5); Carbon Dioxide 26 mmol/L (22-29); Chloride 105 mmol/L (98-107); Creatinine Clr Calc Pharmacy 180.7947; Globulin 2.6 g/dL (1.3-4.6); Glomerular Filtration Rate 169.6 mL/min (90-130); Glucose 112 mg/dL (65-115); Osmolality Calculated 293 mOsm/kg (285-295); Potassium 4.3 mmol/L (3.5-5.1); Sodium 141 mmol/L (136-145); Total Bilirubin 0.4 mg/dL (0.15-1.2); Total Protein 6.7 g/dL (6.6-8.7)
[2024-03-07 09:12] LABS: Lactate Dehydrogenase 147 U/L (135-225)
[2024-03-18] VITALS (9 sets, daily range): BP systolic 124–153; BP diastolic 79–93; PULSE 85–97; RESP 18; TEMP 36.2–37.1; O2SAT 96–99
[2024-03-18 08:27] LABS: Alanine Aminotransferase 18 U/L (0-41); Alkaline Phosphatase 91 U/L (40-130); Anion Gap 15.5 (5-19); Aspartate Amino Transferase 17 U/L (0-40); Blood Urea Nitrogen 15 mg/dL (8-23); Calcium 8.8 mg/dL (8.5-10.5); Carbon Dioxide 23 mmol/L (22-29); Chloride 109 mmol/L (98-107); Creatinine Clr Calc Pharmacy 150.6622; Globulin 2.4 g/dL (1.3-4.6); Glomerular Filtration Rate 137.4 mL/min (90-130); Glucose 177 mg/dL (65-115); Lactate Dehydrogenase 224 U/L (135-225); Osmolality Calculated 301 mOsm/kg (285-295); Potassium 4.5 mmol/L (3.5-5.1); Sodium 143 mmol/L (136-145); Total Bilirubin 0.3 mg/dL (0.15-1.2); Total Protein 6.4 g/dL (6.6-8.7)
[2024-03-18] MEDS: acetaminophen 325 mg Tablet 650 MG PO (10:03)
[2024-03-18] MEDS: sodium chloride 0.9% 250 ML 75 ML IV (10:03)
[2024-03-18] MEDS: diphenhydrAMINE 50 mg/mL SDV 1mL 25 MG IVP (10:03)
[2024-03-18 10:47] LABS: Hepatitis B Core AB, Total Non-Reactive (Nonreactive); Hepatitis B Surface AB < 3.5 (11.5-1000); Hepatitis B Surface Antigen Non-Reactive (Nonreactive)
[2024-03-25 08:16] LABS: Basophils % 1.3 %; Eosinophils # 0.1 10^3/uL (0.0-0.8); Eosinophils % 2.5 %; Hematocrit 39.7 % (37-53); Lymphocytes # 0.2 10^3/uL (0.8-4.8); Mean Corpuscular Hemoglobin 26.5 pg (27-33); Mean Corpuscular Volume 85.4 fl (82-101); Mean Platelet Volume 9.5 fL (7.4-10.4); Monocytes # 0.3 10^3/uL (0.2-0.9); Monocytes % 10.5 %; Neutrophils # 2.48 10^3/uL (1.8-7.7); Neutrophils % 78.7 %; Nucleated Red Blood Cells % 0 %; Platelet Count 198 10^3/cmm (157-399); Red Blood Count 4.65 10^6/uL (3.85-5.65); Red Cell Distribution Width 14.7 % (12.1-15.1); White Blood Count 3.15 10^3/uL (3.29-11.43)
[2024-03-25 08:30] LABS: Alanine Aminotransferase 22 U/L (0-41); Alkaline Phosphatase 83 U/L (40-130); Anion Gap 12.2 (5-19); Aspartate Amino Transferase 17 U/L (0-40); Blood Urea Nitrogen 13 mg/dL (8-23); Calcium 8.8 mg/dL (8.5-10.5); Carbon Dioxide 26 mmol/L (22-29); Chloride 107 mmol/L (98-107); Creatinine Clr Calc Pharmacy 181.6009; Globulin 2.7 g/dL (1.3-4.6); Glomerular Filtration Rate 169.6 mL/min (90-130); Glucose 103 mg/dL (65-115); Osmolality Calculated 292 mOsm/kg (285-295); Potassium 4.2 mmol/L (3.5-5.1); Sodium 141 mmol/L (136-145); Total Bilirubin 0.4 mg/dL (0.15-1.2); Total Protein 6.7 g/dL (6.6-8.7)
[2024-03-25 08:40] VITALS: BP 133/90; PULSE 95; RESP 16; TEMP 36.5; O2SAT 96
[2024-03-25] MEDS: acetaminophen 325 mg Tablet 650 MG PO (08:52)
[2024-03-25] MEDS: diphenhydrAMINE 50 mg/mL SDV 1mL 25 MG IVP (08:53)
[2024-03-25 10:15] VITALS: BP 147/69; PULSE 79; RESP 17; TEMP 36.4; O2SAT 95
[2024-03-25 10:45] VITALS: BP 133/88; PULSE 75; RESP 16; TEMP 36.4; O2SAT 95
[2024-03-25 11:15] VITALS: BP 149/108; PULSE 80; RESP 16; TEMP 36.4; O2SAT 97
[2024-03-25 12:13] VITALS: BP 157/99; PULSE 85; RESP 16; TEMP 36.1; O2SAT 98
== END 2024-03-25 23:59 | disposition home or self-care (01) ==
PROVIDERS: Internal Medicine; Nurse Practitioner Family; PCP Family Medicine; Visit Provider Internal Medicine Hematology & Oncology
DX: Z51.11 Encounter for antineoplastic chemotherapy (principal); Z53.9 Procedure and treatment not carried out, unspecified reason; C91.40 Hairy cell leukemia not having achieved remission; Z79.899 Other long term (current) drug therapy; D70.9 Neutropenia, unspecified; D69.6 Thrombocytopenia, unspecified
CPT/HCPCS: 36415; 80053; 83615; 85025; 86705; 86706; 87340; 96375; 96413; 96415; J1200; J7040; J7050; J9312

== ENCOUNTER 2024-04-08 08:00 | Oncology outpatient (recurring) (ONCR) | payer MEDICAID, SELFPAY ==
[2024-04-01 07:59] LABS: Basophils % 1.1 %; Eosinophils # 0.1 10^3/uL (0.0-0.8); Eosinophils % 2.2 %; Hematocrit 39.1 % (37-53); Lymphocytes # 0.2 10^3/uL (0.8-4.8); Lymphocytes % 4.8 %; Mean Corpuscular HGB Conc 31.2 g/dL (30-55); Mean Corpuscular Hemoglobin 26.5 pg (27-33); Mean Corpuscular Volume 84.8 fl (82-101); Mean Platelet Volume 9.3 fL (7.4-10.4); Monocytes # 0.4 10^3/uL (0.2-0.9); Monocytes % 10.4 %; Neutrophils # 2.88 10^3/uL (1.8-7.7); Neutrophils % 80.9 %; Nucleated Red Blood Cells % 0 %; Platelet Count 184 10^3/cmm (157-399); Red Blood Count 4.61 10^6/uL (3.85-5.65); Red Cell Distribution Width 14.7 % (12.1-15.1); White Blood Count 3.56 10^3/uL (3.29-11.43)
[2024-04-01 08:17] LABS: Alanine Aminotransferase 20 U/L (0-41); Albumin Level 4.1 g/dL (3.5-5.2); Alkaline Phosphatase 82 U/L (40-130); Aspartate Amino Transferase 15 U/L (0-40); Blood Urea Nitrogen 16 mg/dL (8-23); Calcium 8.5 mg/dL (8.5-10.5); Carbon Dioxide 23 mmol/L (22-29); Chloride 107 mmol/L (98-107); Creatinine Clr Calc Pharmacy 181.6009; Globulin 2.4 g/dL (1.3-4.6); Glomerular Filtration Rate 169.6 mL/min (90-130); Glucose 122 mg/dL (65-115); Osmolality Calculated 292 mOsm/kg (285-295); Sodium 140 mmol/L (136-145); Total Bilirubin 0.5 mg/dL (0.15-1.2); Total Protein 6.5 g/dL (6.6-8.7)
[2024-04-01] MEDS: acetaminophen 325 mg Tablet 650 MG PO (09:42)
[2024-04-01] MEDS: diphenhydrAMINE 50 mg/mL SDV 1mL 25 MG IVP (09:43)
[2024-04-01 10:15] VITALS: BP 134/90; PULSE 93; RESP 16; TEMP 37.1; O2SAT 99
[2024-04-01 11:00] VITALS: BP 137/89; PULSE 92; RESP 16; TEMP 36.7; O2SAT 98
[2024-04-01 11:32] VITALS: BP 131/79; PULSE 87; RESP 16; TEMP 36.8; O2SAT 98
[2024-04-01 12:05] VITALS: BP 155/76; PULSE 81; RESP 16; TEMP 36.4; O2SAT 98
[2024-04-01 13:03] VITALS: BP 132/83; PULSE 96; RESP 16; TEMP 36.2; O2SAT 97
[2024-04-08 08:19] LABS: Basophils % 0.7 %; Eosinophils # 0.1 10^3/uL (0.0-0.8); Hematocrit 39.5 % (37-53); Lymphocytes # 0.2 10^3/uL (0.8-4.8); Lymphocytes % 3.7 %; Mean Corpuscular HGB Conc 30.9 g/dL (30-55); Mean Corpuscular Hemoglobin 26.3 pg (27-33); Mean Corpuscular Volume 85.1 fl (82-101); Mean Platelet Volume 9.9 fL (7.4-10.4); Monocytes # 0.4 10^3/uL (0.2-0.9); Monocytes % 9.2 %; Neutrophils # 3.83 10^3/uL (1.8-7.7); Neutrophils % 83.7 %; Nucleated Red Blood Cells % 0 %; Platelet Count 190 10^3/cmm (157-399); Red Blood Count 4.64 10^6/uL (3.85-5.65); Red Cell Distribution Width 14.6 % (12.1-15.1); White Blood Count 4.57 10^3/uL (3.29-11.43)
[2024-04-08 08:39] LABS: Alanine Aminotransferase 20 U/L (0-41); Albumin Level 3.9 g/dL (3.5-5.2); Alkaline Phosphatase 85 U/L (40-130); Anion Gap 15.2 (5-19); Aspartate Amino Transferase 17 U/L (0-40); Blood Urea Nitrogen 16 mg/dL (8-23); Calcium 8.9 mg/dL (8.5-10.5); Carbon Dioxide 22 mmol/L (22-29); Chloride 106 mmol/L (98-107); Creatinine Clr Calc Pharmacy 152.0059; Globulin 2.7 g/dL (1.3-4.6); Glomerular Filtration Rate 137.4 mL/min (90-130); Glucose 146 mg/dL (65-115); Osmolality Calculated 292 mOsm/kg (285-295); Potassium 4.2 mmol/L (3.5-5.1); Sodium 139 mmol/L (136-145); Total Bilirubin 0.4 mg/dL (0.15-1.2); Total Protein 6.6 g/dL (6.6-8.7)
[2024-04-08] MEDS: acetaminophen 325 mg Tablet 650 MG PO (10:59)
[2024-04-08] MEDS: diphenhydrAMINE 50 mg/mL SDV 1mL 25 MG IVP (11:00)
[2024-04-08 11:38] VITALS: BP 124/82; PULSE 87; RESP 17; TEMP 36.3; O2SAT 98
[2024-04-08 12:09] VITALS: BP 127/77; PULSE 90; RESP 16; TEMP 36.4; O2SAT 96
[2024-04-08 12:40] VITALS: BP 130/81; PULSE 96; RESP 17; TEMP 36.6; O2SAT 97
[2024-04-08 13:10] VITALS: BP 118/79; PULSE 90; RESP 15; TEMP 36.1; O2SAT 95
[2024-04-08 14:05] VITALS: BP 133/84; PULSE 91; RESP 16; TEMP 36.3; O2SAT 95
== END 2024-04-08 23:59 | disposition home or self-care (01) ==
PROVIDERS: Nurse Practitioner Family; PCP Family Medicine; Visit Provider Internal Medicine Medical Oncology
DX: C91.40 Hairy cell leukemia not having achieved remission (principal); Z53.9 Procedure and treatment not carried out, unspecified reason; Z51.12 Encounter for antineoplastic immunotherapy; Z79.899 Other long term (current) drug therapy
CPT/HCPCS: 36592; 80053; 85025; 96375; 96413; 96415; J1200; J7040; J9312

== ENCOUNTER 2024-08-06 07:59 | Oncology outpatient (recurring) (ONCR) | payer MEDICAID, SELFPAY ==
[2024-08-06 08:26] LABS: Basophils # 0.1 10^3/uL (0.0-0.1); Eosinophils # 0.1 10^3/uL (0.0-0.8); Eosinophils % 2.6 %; Hematocrit 42.6 % (37-53); Lymphocytes # 0.3 10^3/uL (0.8-4.8); Mean Corpuscular HGB Conc 30.8 g/dL (30-55); Mean Corpuscular Hemoglobin 25.3 pg (27-33); Mean Corpuscular Volume 82.2 fl (82-101); Mean Platelet Volume 9.2 fL (7.4-10.4); Monocytes # 0.5 10^3/uL (0.2-0.9); Monocytes % 10.6 %; Neutrophils # 4.02 10^3/uL (1.8-7.7); Neutrophils % 80.2 %; Nucleated Red Blood Cells % 0 %; Platelet Count 207 10^3/cmm (157-399); Red Blood Count 5.18 10^6/uL (3.85-5.65); White Blood Count 5.01 10^3/uL (3.29-11.43)
[2024-08-06 08:48] LABS: Alanine Aminotransferase 28 U/L (0-41); Albumin Level 4.2 g/dL (3.5-5.2); Alkaline Phosphatase 121 U/L (40-130); Anion Gap 13.2 (5-19); Aspartate Amino Transferase 18 U/L (0-40); Blood Urea Nitrogen 15 mg/dL (8-23); Carbon Dioxide 27 mmol/L (22-29); Chloride 106 mmol/L (98-107); Creatinine Clr Calc Pharmacy 151.6696; Glomerular Filtration Rate 137.4 mL/min (90-130); Glucose 97 mg/dL (65-115); Lactate Dehydrogenase 121 U/L (135-225); Osmolality Calculated 295 mOsm/kg (285-295); Potassium 4.2 mmol/L (3.5-5.1); Sodium 142 mmol/L (136-145); Total Bilirubin 0.5 mg/dL (0.15-1.2); Total Protein 7.2 g/dL (6.6-8.7)
== END 2024-08-28 23:59 | disposition home or self-care (01) ==
PROVIDERS: PCP Family Medicine; Visit Provider Internal Medicine Medical Oncology
DX: C91.40 Hairy cell leukemia not having achieved remission (principal); D70.9 Neutropenia, unspecified; D69.6 Thrombocytopenia, unspecified; Z79.899 Other long term (current) drug therapy
CPT/HCPCS: 36415; 80053; 83615; 85025

== ENCOUNTER 2024-11-05 09:14 | Oncology outpatient (recurring) (ONCR) | payer MEDICAID, SELFPAY ==
[2024-11-05 09:37] LABS: Hematocrit 44.0 % (37-53); Hemoglobin 13.60 g/dL (11.27-16.99); Mean Corpuscular HGB Conc 30.9 g/dL (30-55); Mean Corpuscular Hemoglobin 25.4 pg (27-33); Mean Corpuscular Volume 82.2 fl (82-101); Nucleated Red Blood Cells % 0 %; Platelet Count 192 10^3/cmm (157-399); Red Blood Count 5.35 10^6/uL (3.85-5.65); White Blood Count 3.68 10^3/uL (3.29-11.43)
[2024-11-05 09:52] LABS: Alanine Aminotransferase 16 U/L (0-41); Albumin Level 4.4 g/dL (3.5-5.2); Alkaline Phosphatase 119 U/L (40-130); Anion Gap 13.8 (5-19); Aspartate Amino Transferase 18 U/L (0-40); Blood Urea Nitrogen 16 mg/dL (8-23); Calcium 9.1 mg/dL (8.5-10.5); Carbon Dioxide 27 mmol/L (22-29); Chloride 107 mmol/L (98-107); Creatinine Clr Calc Pharmacy 141.8211; Globulin 3.0 g/dL (1.3-4.6); Glucose 96 mg/dL (65-115); Osmolality Calculated 297 mOsm/kg (285-295); Potassium 4.8 mmol/L (3.5-5.1); Sodium 143 mmol/L (136-145); Total Protein 7.4 g/dL (6.6-8.7)
[2024-11-06 13:01] LABS: Leukemia Profile (BBPL) See Report
== END 2024-11-28 23:59 | disposition home or self-care (01) ==
PROVIDERS: PCP Family Medicine; Visit Provider Internal Medicine Medical Oncology
DX: C91.40 Hairy cell leukemia not having achieved remission (principal); D70.9 Neutropenia, unspecified; D69.6 Thrombocytopenia, unspecified
CPT/HCPCS: 36415; 80053; 85025; 88184; 88185

== ENCOUNTER 2025-02-04 10:14 | Oncology outpatient (recurring) (ONCR) | payer MEDICAID, SELFPAY ==
[2025-02-04 10:30] LABS: Hematocrit 42.3 % (37-53); Hemoglobin 13.50 g/dL (11.27-16.99); Mean Corpuscular HGB Conc 31.9 g/dL (30-55); Mean Corpuscular Hemoglobin 26.6 pg (27-33); Mean Corpuscular Volume 83.3 fl (82-101); Nucleated Red Blood Cells % 0 %; Platelet Count 193 10^3/cmm (157-399); Red Blood Count 5.08 10^6/uL (3.85-5.65); White Blood Count 4.62 10^3/uL (3.29-11.43)
[2025-02-04 10:48] LABS: Alanine Aminotransferase 15 U/L (0-41); Albumin Level 4.6 g/dL (3.5-5.2); Alkaline Phosphatase 120 U/L (40-130); Anion Gap 13.3 (5-19); Aspartate Amino Transferase 16 U/L (0-40); Blood Urea Nitrogen 19 mg/dL (8-23); Calcium 9.0 mg/dL (8.5-10.5); Carbon Dioxide 26 mmol/L (22-29); Chloride 106 mmol/L (98-107); Globulin 2.8 g/dL (1.3-4.6); Glucose 114 mg/dL (65-115); Osmolality Calculated 295 mOsm/kg (285-295); Potassium 4.3 mmol/L (3.5-5.1); Sodium 141 mmol/L (136-145); Total Protein 7.4 g/dL (6.6-8.7)
[2025-02-05 12:48] LABS: Leukemia Profile (BBPL) See Report
== END 2025-02-28 23:59 | disposition home or self-care (01) ==
PROVIDERS: Nurse Practitioner Family; PCP Family Medicine; Visit Provider Internal Medicine Medical Oncology
DX: C91.40 Hairy cell leukemia not having achieved remission (principal)
CPT/HCPCS: 36415; 80053; 85025; 88184; 88185